=== PATIENT | female | born 1960 | race African-American/Black ===

== ENCOUNTER 2020-12-12 12:15 | Emergency (ER) | payer OTHER ==
[~2020-12-12] VITALS: Ht 177.8 cm; Wt 65.0 kg
[2020-12-12] MEDS ORDERED: DILTIAZEM 5 MG/ML, 5ML IV ONE (13:30)
[2020-12-12] MEDS ORDERED: SODIUM CHLORIDE FLUSH 10ML SYR IVF ONE (13:30)
[2020-12-12] MEDS ORDERED: DILTIAZEM 125 MG in SODIUM CHLORIDE 0.9% 100 ML IV SCH (13:30)
--- NOTE | 2020-12-12 13:30 | NUR ---
PT HAS CO AFIB. DIZZINESS AND PALPITATIONS X3 DAYS. PT WAS ON XARALTO, STOPPED IN JANUARY OF LAST YEAR, WAS NSR, NOTICED AFIB LAST COUPLE DAYS SYMPTOMS. TOOK ONE DOSE OF XARALTO TODAY. PT ON CARD MONITOR. SEEN BY MD GLASS. PT RATE AFIB 100-130. IV ESTABLSHED
[2020-12-12] MEDS ORDERED: DILTIAZEM 5 MG/ML, 5ML ONE (13:31)
[2020-12-12 13:36] LABS: BASOPHILS % (AUTO) 1 % (0-1); EOSINOPHILS % (AUTO) 0 % (1-7); LYMPHOCYTES % (AUTO) 35 % (22-44); MD NO; MEAN CORPUSCULAR HEMOGLOBIN 30.1 pg (27.0-34.8); MEAN PLATELET VOLUME 8.1 fL (7.4-10.4); MONOCYTES % (AUTO) 10 % (2-9); NEUTROPHILS % (AUTO) 54 % (42-75); PLATELET COUNT 326 x10^3/uL (130-400); RED BLOOD COUNT 4.95 x10^6/uL (3.82-5.3); RED CELL DISTRIBUTION WIDTH 13.1 % (9.6-15.2)
[2020-12-12 13:47] LABS: ALBUMIN 3.9 g/dL (3.4-5.0); ANION GAP 8 mmol/L (5-15); CHLORIDE 107 mmol/L (98-107); CREATININE 0.97 mg/dL (0.55-1.02)
[2020-12-12 13:57] LABS: T4 (THYROXINE) 8.6 mcg/dL (4.8-13.9); TROPONIN I < 0.015 ng/mL (0.000-0.045)
[2020-12-12] MEDS ORDERED: SODIUM CHLORIDE 0.9% 1,000ML IVBOLUS ONE (14:00)
[2020-12-12] MEDS ORDERED: HYDR12.517 PO (14:05)
[2020-12-12] MEDS ORDERED: DILT60CA PO (14:05)
--- NOTE | 2020-12-12 14:19 | NUR ---
BREAK RN: IV INFUSING WELL, PT REQUESTED WARM BLANKET, VS WNL. VERBALIZED NO ADDITIONAL NEEDS AT THIS TIME.
--- NOTE | 2020-12-12 14:48 | NUR ---
PT AMBULATED TO BATHROOM W STEADY GAIT
--- NOTE | 2020-12-12 15:20 | NUR ---
PT FEELING WELL. DENIES DIZZINESS. TO BE DC. IV REMOVED
--- NOTE | 2020-12-12 15:20 | NUR ---
Patient given discharge instructions and they have confirmed that they understand the instructions. Patient ambulatory with steady gait.
[2020-12-12 15:21] VITALS: BP 97/67
== END 2020-12-12 15:32 | disposition home or self-care (01) ==
LOC: ED 12:45
DX: I48.0 Paroxysmal atrial fibrillation (principal)
CPT/HCPCS: 36415; 71045; 80048; 82040; 83880; 84436; 84443; 84484; 85025; 93005; 96365; 96366; 96376; 99285; J7030

== ENCOUNTER 2020-12-23 06:11 | Day surgery (SDC) | payer OTHER ==
[~2020-12-23] VITALS: Ht 177.8 cm; Wt 64.5 kg
[~2020-12-23 06:11] MED LIST: DILT60CA PO; HYDR12.517 PO
[2020-12-23] MEDS ORDERED: SODIUM CHLORIDE 0.9% 1,000 ML IV SCH ×2 (06:30→07:00)
[2020-12-23 06:50] VITALS: BP 111/82
[2020-12-23] MEDS ORDERED: DILT180C72 PO (06:54)
[2020-12-23] MEDS ORDERED: ROSU10TA2 PO (06:54)
[2020-12-23] MEDS ORDERED: LINA290C PO (06:54)
[2020-12-23] MEDS ORDERED: DIPH25CA61 PO (06:54)
[2020-12-23] MEDS ORDERED: ESTR0.5T PO (06:54)
[2020-12-23] MEDS ORDERED: RIVA20TA PO (06:54)
[2020-12-23 07:30] LABS: BASOPHILS % (AUTO) 1 % (0-1); EOSINOPHILS % (AUTO) 1 % (1-7); LYMPHOCYTES % (AUTO) 49 % (22-44); MEAN CORPUSCULAR HEMOGLOBIN 29.5 pg (27.0-34.8); MEAN CORPUSCULAR HGB CONC 33.2 g/dL (32.4-35.8); MONOCYTES % (AUTO) 9 % (2-9); NEUTROPHILS % (AUTO) 40 % (42-75); PLATELET COUNT 252 x10^3/uL (130-400); RED BLOOD COUNT 4.12 x10^6/uL (3.82-5.3); RED CELL DISTRIBUTION WIDTH 13.5 % (9.6-15.2)
[2020-12-23 07:42] LABS: ALBUMIN 3.6 g/dL (3.4-5.0); ANION GAP 5 mmol/L (5-15); CALCIUM 8.5 mg/dL (8.5-10.1); CHLORIDE 110 mmol/L (98-107)
[2020-12-23 07:45] LABS: ALANINE AMINOTRANSFERASE 55 U/L (12-78); ALKALINE PHOSPHATASE 66 U/L (45-117); BILIRUBIN,TOTAL 0.9 mg/dL (0.2-1.0); CREATININE 0.84 mg/dL (0.55-1.02); TOTAL PROTEIN 7.1 g/dL (6.4-8.2)
[2020-12-23] MEDS ORDERED: POTASSIUM CHLORIDE 20 MEQ TAB.ER.PRT PO ONE (08:00)
[2020-12-23 08:20] LABS: MD SCAN
[2020-12-23] MEDS ORDERED: PROPOFOL 10 MG/ML, 20ML ONE (08:39)
== END 2020-12-23 10:01 | disposition home or self-care (01) ==
LOC: CACL 06:11
PROVIDERS: ATTEND Internal Medicine Cardiovascular Disease
DX: I48.92 Unspecified atrial flutter (principal); I48.91 Unspecified atrial fibrillation; I07.1 Rheumatic tricuspid insufficiency; I10 Essential (primary) hypertension; E78.00 Pure hypercholesterolemia, unspecified; E87.6 Hypokalemia; Z20.822 Contact with and (suspected) exposure to COVID-19; Z79.01 Long term (current) use of anticoagulants; Z79.899 Other long term (current) drug therapy; Z82.49 Family history of ischemic heart disease and other diseases of the circulatory system
CPT/HCPCS: 36415; 80053; 85025; 87635; 92960; 93005; 93312; 93321; 93325; J2704

== ENCOUNTER 2021-02-21 10:54 | Day surgery (SDC) | payer OTHER ==
[~2021-02-21] VITALS: Ht 177.8 cm; Wt 64.0 kg
[~2021-02-21 10:54] MED LIST changes: +DILT180C72 PO; +DIPH25CA61 PO; +ESTR0.5T PO; +LINA290C PO; +RIVA20TA PO; +ROSU10TA2 PO
[2021-02-21 11:56] VITALS: BP 106/75
[2021-02-21] MEDS ORDERED: PLEASE ENTER HEIGHT AND WEIGHT MC SCH (12:00)
[2021-02-21] MEDS ORDERED: SODIUM CHLORIDE 0.9% 1,000 ML IV SCH (12:00)
[2021-02-21 12:06] LABS: BASOPHILS % (AUTO) 1 % (0-1); EOSINOPHILS % (AUTO) 1 % (1-7); LYMPHOCYTES % (AUTO) 51 % (22-44); MEAN CORPUSCULAR HEMOGLOBIN 29.5 pg (27.0-34.8); MEAN CORPUSCULAR HGB CONC 33.6 g/dL (32.4-35.8); MEAN PLATELET VOLUME 7.8 fL (7.4-10.4); MONOCYTES % (AUTO) 10 % (2-9); NEUTROPHILS % (AUTO) 36 % (42-75); PLATELET COUNT 259 x10^3/uL (130-400); RED BLOOD COUNT 4.64 x10^6/uL (3.82-5.3); RED CELL DISTRIBUTION WIDTH 12.5 % (9.6-15.2)
[2021-02-21 12:15] LABS: ANION GAP 4 mmol/L (5-15); CALCIUM 8.8 mg/dL (8.5-10.1); CHLORIDE 106 mmol/L (98-107); CREATININE 0.73 mg/dL (0.55-1.02)
[2021-02-21] MEDS ORDERED: MIDAZOLAM 1 MG/ML, 2ML ONE (13:00)
[2021-02-21] MEDS ORDERED: FENTANYL PF 100 MCG/2ML ONE (13:00)
[2021-02-21] MEDS ORDERED: PHENYLEPHRINE 10 MG/ML ONE (13:18)
[2021-02-21] MEDS ORDERED: ACETAMINOPHEN 325 MG TABLET PO PRN (13:30)
[2021-02-21] MEDS ORDERED: HYDROmorphone 1 MG/ML, 1ML INJ IVPush PRN (13:30)
[2021-02-21] MEDS ORDERED: PROMETHAZINE 25 MG/ML, 1ML IVPush PRN (13:30)
[2021-02-21] MEDS ORDERED: hydrALAzine 20 MG/ML, 1ML IV PRN (13:30)
[2021-02-21] MEDS ORDERED: EPHEDRINE 50 MG/ML, 1ML IVPush PRN (13:30)
[2021-02-21] MEDS ORDERED: OXYcodone 5 MG/5 ML ORAL.SOL UDC PO PRN (13:30)
[2021-02-21] MEDS ORDERED: LABETALOL 5MG/ML, 20ML IV PRN (13:30)
[2021-02-21] MEDS ORDERED: FENTANYL PF 100 MCG/2ML IV PRN (13:30)
[2021-02-21] MEDS ORDERED: ONDANSETRON 2MG/ML, 2ML IVPush PRN (13:30)
[2021-02-21] MEDS ORDERED: PROPOFOL 10 MG/ML, 20ML ONE (13:48)
[2021-02-21] MEDS ORDERED: NEOSTIGMINE 1 MG/ML, 10ML ONE (13:48)
[2021-02-21] MEDS ORDERED: ONDANSETRON 2MG/ML, 2ML ONE (13:48)
[2021-02-21] MEDS ORDERED: SUCCINYLCHOLINE 20 MG/ML, 10ML ONE (13:48)
[2021-02-21] MEDS ORDERED: DEXAMETHASONE 4 MG/ML, 1ML ONE (13:48)
[2021-02-21] MEDS ORDERED: GLYCOPYRROLATE 0.2MG/1ML, 5ML ONE (13:48)
[2021-02-21] MEDS ORDERED: ROCURONIUM 10MG/ML,5ML ONE (13:48)
[2021-02-21] MEDS ORDERED: MEPERIDINE/PF 25MG/ML,1ML ONE (16:18)
[2021-02-21] MEDS ORDERED: MEPERIDINE/PF 25MG/0.5ML IVPush PRN (16:30)
[2021-02-21 19:54] VITALS: BP 106/70
== END 2021-02-21 21:25 | disposition home or self-care (01) ==
LOC: CACL 10:54 → 5SO 17:00 → CACL 21:25
PROVIDERS: ATTEND Internal Medicine Clinical Cardiac Electrophysiology
DX: I48.92 Unspecified atrial flutter (principal); I07.1 Rheumatic tricuspid insufficiency; I10 Essential (primary) hypertension; E78.5 Hyperlipidemia, unspecified; Z79.01 Long term (current) use of anticoagulants; Z79.899 Other long term (current) drug therapy
CPT/HCPCS: 36415; 80048; 85025; 93312; 93321; 93325; 93613; 93621; 93653; C1730; C1732; C1766; C1894; J0330; J1100; J2175; J2250; J2370; J2405; J2704; J2710; J3010; G0378